=== PATIENT | male | born 1985 | race American Indian/Alaskan Native ===

== ENCOUNTER 2020-02-22 11:59 | Emergency (ER) | payer OTHER ==
[~2020-02-22] VITALS: Ht 172.7 cm; Wt 56.7 kg
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
== END 2020-02-22 12:45 | disposition home or self-care (01) ==
LOC: ER 12:26
DX: M62.838 Other muscle spasm (principal); R42 Dizziness and giddiness
CPT/HCPCS: 99282